=== PATIENT | male | born 1990 | race Caucasian/White ===

== ENCOUNTER 2016-06-17 18:03 | Emergency (ER) | payer OTHER | END 2016-06-17 19:20 | disposition short-term general hospital (02) | LOC: ER 18:03 | DX: T18.108A Unspecified foreign body in esophagus causing other injury, initial encounter (principal); K92.2 Gastrointestinal hemorrhage, unspecified; F17.210 Nicotine dependence, cigarettes, uncomplicated | CPT/HCPCS: 71020; 74000; 96360; 99070; 99284-25 ==